=== PATIENT | male | born 1990 | race Caucasian/White ===

== ENCOUNTER → 2023-01-21 09:53 | Outpatient (CLI) | payer OTHER, SELFPAY ==
--- NOTE | 2023-01-21 11:28 | DI.RAD.S_ITS ---
PROCEDURE: XR NASAL BONES MIN 3V INDICATIONS: Nasal fracture TECHNIQUE: 3 views of the nasal bones acquired. COMPARISON: None. FINDINGS: Bones: No fractures or dislocations. Nasal septum is midline. Normal nasociliary nerve grooves are noted. Soft tissues: No suspicious soft tissue calcifications. IMPRESSION: Unremarkable nasal bone radiographs Approved by: Luis Boston M.D. on 01/21/2023 at 18:15
== END ==
PROVIDERS: Referring Provider Nurse Practitioner Family; Visit Provider Nurse Practitioner Family
DX: S02.2XXA Fracture of nasal bones, initial encounter for closed fracture (principal); X58.XXXA Exposure to other specified factors, initial encounter
CPT/HCPCS: 70160

== ENCOUNTER 2023-01-29 13:36 | Day surgery (SDC) | payer OTHER, SELFPAY ==
[2023-01-27 08:14] VITALS: BMI 24.0
[2023-01-29] MEDS: LACTATED RINGERS 1,000 ML 42 ML IV (13:49)
[2023-01-29 13:52] VITALS: BP 124/78; PULSE 66; RESP 16; TEMP 36.4; O2SAT 99; BMI 23.6
[2023-01-29] MEDS: OXYMETAZOLINE NASAL SPRAY 15 ML 2 SPRAYS NASAL ×2 (14:07→14:59)
--- NOTE | 2023-01-29 14:31 | PM.PREOP ---
Pre-operative Note Interval Note History & Physical reviewed/Exam performed by Physician: Yes Changes to H&P: No
--- NOTE | 2023-01-29 14:42 | PM.OP.1 ---
Operative Date/Time/Diagnoses Date of procedure: 01/29/23 Pre-op diagnosis: Closed nasal fracture with new external nasal deformity, trauma date 01/20/2023 Post-op diagnosis: same Procedure & Clinicians Procedure: Closed reduction nasal fracture without stabilization Same procedure as scheduled: Yes Indications: 32 Year old with the above diagnoses presents for the above procedure. Following discussion of the material risks benefits complications and alternatives, the parents elected to proceed. Surgeon: Clark Mackey Anesthesia Type: General and Local Operative Notes Findings: Elevated right nasal bone, minimally depressed left nasal bone, each reduced Estimated Blood Loss (mL): 1 Procedure in detail: Following identification and confirmation of consent, as well as preoperative Afrin nasal spray he was brought to the operating suite and placed in the supine position. General laryngeal mask anesthesia was administered. I packed small cotton balls with Afrin and 4% lidocaine tightly under the nasal bones bilaterally for a full minute. Upon removal, the Boies elevator was placed underneath the left depressed nasal bone, and external digital pressure was simultaneously applied over the elevated right nasal bone and the nasal pyramid was reduced past midline to allow eventual midline position, stable. The majority of movement occurred with the reduction of the elevated RIGHT nasal bone. The cotton was temporarily replaced underneath the nasal nasal bones for any possible bleeding and was removed after another minute with good hemostasis He was awakened in the operating room and taken to recovery room in stable condition without known complication. Complications: none Post-operative Condition: stable Disposition: same day surgery Plan for aftercare: Afrin for bleeding only, nasal saline for any crusting, ice if desired 24-48 hours
--- NOTE | 2023-01-29 14:56 | SUR.OPER ---
Supine on padded Stretcher, Okay per Dr. Mackey, head on pillow, arms tucked at sides, legs uncrossed, Warm blankets placed.
[2023-01-29] MEDS: LIDOCAINE 4% SOLN 50 ML 20 ML TOP (14:59)
[2023-01-29 15:06] VITALS: BP 118/71; PULSE 71; RESP 15; TEMP 36.4; O2SAT 98
[2023-01-29 15:11] VITALS: BP 114/76; PULSE 72; RESP 12; O2SAT 98
[2023-01-29 15:17] VITALS: BP 121/76; PULSE 65; RESP 14; TEMP 36.4; O2SAT 98
[2023-01-29 15:21] VITALS: PULSE 63; RESP 12; O2SAT 99
[2023-01-29] MEDS: OXYCODONE IR 5 MG TABLET PO (15:23)
[2023-01-29 15:27] VITALS: BP 117/78; PULSE 62; RESP 16; O2SAT 99
== END 2023-01-29 15:38 | disposition home or self-care (01) ==
PROVIDERS: Referring Provider Otolaryngology; Visit Provider Otolaryngology
PROC: 0NSBXZZ Reposition Nasal Bone, External Approach (ICD-10-PCS; CPT 21315; principal; 2023-01-29 14:45)
DX: S02.2XXA Fracture of nasal bones, initial encounter for closed fracture (principal); J34.89 Other specified disorders of nose and nasal sinuses; J34.2 Deviated nasal septum
CPT/HCPCS: 21315; J1100; J2250; J2405; J2704; J3010

== ENCOUNTER → 2023-08-19 09:39 | Outpatient (CLI) | payer BC, SELFPAY ==
[2023-08-19 10:49] LABS: Cholesterol 210 mg/dL (140-199); Glucose 97 mg/dL (70-100); HDL Cholesterol 42 mg/dL (40-60); LDL Cholesterol Calculated 142 mg/dL (<100); Triglycerides 132 mg/dL (35-150)
[2023-08-19 11:47] LABS: Hep C Virus Ab w/Reflex Quant NEGATIVE s/c (NEGATIVE)
== END ==
PROVIDERS: PCP Internal Medicine; Referring Provider Internal Medicine; Visit Provider Internal Medicine
DX: Z00.00 Encounter for general adult medical examination without abnormal findings (principal); Z20.9 Contact with and (suspected) exposure to unspecified communicable disease
CPT/HCPCS: 36415; 80061; 82947; 86803